=== PATIENT | female | born 1995 | race Caucasian/White ===

== ENCOUNTER 2021-05-14 18:26 | Emergency (ER) | payer OTHER, SELFPAY ==
[2021-05-14 18:33] VITALS: BP 119/75; PULSE 71; RESP 16; TEMP 36.6; O2SAT 99; BMI 38.4
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
== END 2021-05-14 18:56 | disposition home or self-care (01) ==
PROVIDERS: Emergency Provider Physician Assistant
DX: S00.03XA Contusion of scalp, initial encounter (principal); W50.0XXA Accidental hit or strike by another person, initial encounter
CPT/HCPCS: 99281